=== PATIENT | female | born 1975 | race Caucasian/White ===

== ENCOUNTER 2017-08-12 18:43 | Emergency (ER) | payer BC, OTHER ==
[2017-08-12] MEDS: ACETAMINOPHEN 325 MG TAB PO (20:30)
[2017-08-12] MEDS: METOCLOPRAMIDE 10 MG TAB PO (20:30)
== END 2017-08-12 21:19 | disposition home or self-care (01) ==
LOC: M ED 18:43
DX: S09.90XA Unspecified injury of head, initial encounter (principal); W50.0XXA Accidental hit or strike by another person, initial encounter; Y92.9 Unspecified place or not applicable; Y93.9 Activity, unspecified; M43.22 Fusion of spine, cervical region; M47.22 Other spondylosis with radiculopathy, cervical region
CPT/HCPCS: 70450